=== PATIENT | female | born 1995 | race Two or more races ===

== ENCOUNTER 2022-09-26 17:42 | Inpatient (IN) | payer OTHER ==
[~2022-09-26] VITALS: Ht 147.3 cm; Wt 50.8 kg
[2022-09-26] MEDS ORDERED: PRENATAL TABLE1 EAC1 PO (20:58)
== END 2022-09-29 10:40 | disposition home or self-care (01) | DRG 807 ==
LOC: LDR 17:42 → OB/GYN 17:42 → LDR 17:55 → OB/GYN 09-27 22:08
PROVIDERS: ADMIT Specialist; ATTEND Specialist
PROC: 3E0P7VZ Introduction of Hormone into Female Reproductive, Via Natural or Artificial Opening (ICD-10-PCS; 2022-09-26)
PROC: 4A1HXCZ Monitoring of Products of Conception, Cardiac Rate, External Approach (ICD-10-PCS; 2022-09-26)
PROC: 10E0XZZ Delivery of Products of Conception, External Approach (ICD-10-PCS; principal; 2022-09-27)
PROC: 3E033VJ Introduction of Other Hormone into Peripheral Vein, Percutaneous Approach (ICD-10-PCS; 2022-09-27)
DX: O80 Encounter for full-term uncomplicated delivery (principal); Z37.0 Single live birth; Z3A.37 37 weeks gestation of pregnancy; Z20.822 Contact with and (suspected) exposure to COVID-19